=== PATIENT | female | born 1990 | race Caucasian/White ===

== ENCOUNTER 2016-06-17 17:54 | Emergency (ER) | payer SELFPAY | END 2016-06-17 17:55 | disposition home or self-care (01) | LOC: ER 17:54 | DX: J06.9 Acute upper respiratory infection, unspecified (principal); J45.909 Unspecified asthma, uncomplicated; F17.200 Nicotine dependence, unspecified, uncomplicated; Z90.89 Acquired absence of other organs; Z88.1 Allergy status to other antibiotic agents | CPT/HCPCS: 71020; 94640; 99283 ==